=== PATIENT | male | born 1995 | race Asian ===

== ENCOUNTER 2017-04-28 13:59 | Emergency (ER) | payer OTHER ==
[~2017-04-28] VITALS: Ht 170.2 cm; Wt 68.0 kg
[2017-04-28 13:56] VITALS: TEMP 97.8
[2017-04-28 14:59] VITALS: BP 103/61
== END 2017-04-28 15:00 ==
LOC: ED 13:59
DX: F19.10 Other psychoactive substance abuse, uncomplicated (principal); S21.219A Laceration without foreign body of unspecified back wall of thorax without penetration into thoracic cavity, initial encounter; S21.119A Laceration without foreign body of unspecified front wall of thorax without penetration into thoracic cavity, initial encounter; W19.XXXA Unspecified fall, initial encounter
CPT/HCPCS: 36415; 80307; 80320; 96374; 96375; 99284; J1885; J2405

== ENCOUNTER 2022-10-13 12:35 | Emergency (ER) | payer OTHER ==
[~2022-10-13] VITALS: Ht 170.2 cm; Wt 76.2 kg
[2022-10-13 12:56] LABS: PLATELET COUNT 148 K/uL (142-355)
[2022-10-13 13:03] LABS: POTASSIUM 3.7 mmol/L (3.6-5.2)
== END 2022-10-13 15:52 | disposition home or self-care (01) ==
LOC: ED 12:35
PROVIDERS: Family Medicine
DX: N20.0 Calculus of kidney (principal); R10.9 Unspecified abdominal pain
CPT/HCPCS: 36415; 80053; 81000; 83690; 85027; 96374; 96375; 99284; J1885; J2270; J2405